=== PATIENT | female | born 1950 | race Caucasian/White ===

== ENCOUNTER 2019-04-18 16:54 | Inpatient (IN) | payer MEDICARE, MEDICAID ==
[~2019-04-18] VITALS: Ht 172.7 cm; Wt 88.5 kg
--- NOTE | 2019-04-18 19:30 | NUR ---
Admitted a 69 y/o female from [facility]. On 5150 hold as DTS. Patient admitting Dx. Depression. Medical dx. chronic pain at right knee, fibromyalgia, redness breast fold fungal. Upon face to face evaluation, patient appeared alert and oriented x 3, calm, cooperative, hyperverbal, needy, paranoid, suspicious, denies SI/HI/AH/VH. Body check done. Picture done. Explained the paper works and patient signed the consents. Informed of visiting hours and unit policies. Belongings and contraband checked. Q15 min checks initiated. Care plan started. Vital signs checked and recorded. Patient's rights discussed, guide to prescription meds handbook provided. Patient advised of the hold. Notified Ricardo Helm to reconcile meds and order of wound consult, notified Arelis (daughter) of the patients admission, notified Dr. Baron of the admission. Will monitor patient for mood, safety and behavior. Will endorse to the day shift.
[2019-04-18] MEDS ORDERED: MAG HYDROX/AL HYDROX/SIMETH 30 ML UDC PO PRN (20:00)
[2019-04-18] MEDS ORDERED: MAGNESIUM HYDROXIDE 30 ML UDC PO PRN (20:00)
[2019-04-18] MEDS ORDERED: BLOOD SUGAR DIAGNOSTIC 1 EACH STRIP IN ONE (20:30)
[2019-04-18] MEDS ORDERED: TRAM50TA2 PO (20:44)
[2019-04-18] MEDS ORDERED: ESTR42.5 (20:44)
[2019-04-18] MEDS ORDERED: MEMA5TAB15 PO (20:44)
[2019-04-18] MEDS ORDERED: DIVA-76 PO (20:44)
[2019-04-18] MEDS ORDERED: GABA-534 (20:44)
[2019-04-18] MEDS ORDERED: VALS40TA12 (20:44)
[2019-04-18] MEDS ORDERED: LEVO25TA9 PO (20:44)
[2019-04-18] MEDS ORDERED: HYDR-3980 PO (20:44)
[2019-04-18] MEDS ORDERED: NEBI5TAB8 (20:44)
[2019-04-18] MEDS ORDERED: ROSU5TAB13 (20:44)
[2019-04-18] MEDS ORDERED: CITA40TA11 PO (20:44)
[2019-04-18] MEDS ORDERED: PANT40TA4 PO (20:44)
[2019-04-18] MEDS ORDERED: ALPR0.5T8 PO (20:44)
[2019-04-18] MEDS ORDERED: CLON1TAB12 PO (20:44)
[2019-04-18] MEDS ORDERED: DONE5TAB34 PO (20:44)
[2019-04-18 20:50] VITALS: BP 148/97
[2019-04-18 20:52] VITALS: BP 123/75
[2019-04-18] MEDS ORDERED: TRAMADOL HCL 50 MG TABLET PO PRN (22:00)
[2019-04-18] MEDS: CYCLOBENZAPRINE 10 MG TABLET PO PRN (22:13)
[2019-04-18] MEDS: LORAZEPAM 1 MG TABLET PO PRN (22:14)
[2019-04-18] MEDS: DONEPEZIL 5 MG TABLET PO SCH (22:14)
[2019-04-18] MEDS: SIMVASTATIN 10 MG TABLET PO SCH (22:18)
[2019-04-18] MEDS: ACETAMINOPHEN 325 MG TABLET PO PRN (23:14)
--- NOTE | 2019-04-19 | NUR ---
GPS RN NOTE: PATIENT C/O 05/09 CRAMPING PAIN ON BOTH LEGS, PATIENT WAS SHAKING, UNEASY, REQUESTING FOR NORCO , BECAUSE PER PATIENT SHE IS HAVING A WITHDRAWAL. HOT COMPRESS GIVEN, FLEXERIL GIVEN ORDERED, ATIVAN 1MG PO GIVEN FOR ANXIETY, TYLENOL GIVEN REQUESTED. PER PATIENT ITS NOT EFFECTIVE. NOTIFIED RENAL SOCIAL WORKERAlexander TALAMANTES WITH ORDER OF NORCO GIVEN NOTED AND CARRIED OUT. WILL CONTINUE TO MONITOR Q15 MINS FOR SAFETY Addendum: 04/19/19 at 0535 by OMID SHORT II, RN OFFERED TRAMADOL ORDERED AND PATIENT REFUSED, KENDAL KHAN
[2019-04-19 00:05] VITALS: BP 148/97
[2019-04-19] MEDS: HYDROCODONE/APAP 5/325MG 1 EACH TABLET PO PRN ×5 (00:15→20:08)
[2019-04-19] MEDS: ZOLPIDEM TARTRATE 5 MG TABLET PO PRN ×2 (01:17→21:31)
--- NOTE | 2019-04-19 01:17 | NUR ---
GPS RN NOTE, PATIENT HAS A COMPLAINT OF NOT BEING ABLE TO SLEEP AND IS REQUESTING AMBIEN AT THIS TIME. PATIENT VITAL SIGNS ARE STABLE. GAVE AMBIEN 5 MG PO HS PRN ORDERED. WILL REASSESS FOR INSOMNIA AND I WILL CONTINUE TO MONITOR THIS PATIENT.
[2019-04-19] MEDS: LORAZEPAM 1 MG TABLET PO PRN ×3 (04:16→21:31)
[2019-04-19] MEDS: ACETAMINOPHEN 325 MG TABLET PO PRN (05:31)
[2019-04-19] MEDS: LEVOTHYROXINE SODIUM 25 MCG TABLET PO SCH ×2 (06:52→08:12)
[2019-04-19 07:36] LABS: BASOPHILS # (AUTO) 0.1 /CMM (0.0-0.2); BASOPHILS % (AUTO) 0.6 % (0.0-2.0); EOSINOPHILS % (AUTO) 0.3 % (0.0-6.0); HEMATOCRIT 43 % (33-45); HEMOGLOBIN 14.8 g/dL (11.5-14.8); LYMPHOCYTES # (AUTO) 1.8 /CMM (0.8-4.8); LYMPHOCYTES % (AUTO) 17.7 % (20.0-44.0); MEAN CORPUSCULAR HGB CONC 34 g/dl (31.0-36.0); MEAN CORPUSCULAR VOLUME 89 fL (82-100); MONOCYTES # (AUTO) 0.8 /CMM (0.1-1.30); MONOCYTES % (AUTO) 8.4 % (2.0-12.0); NEUTROPHILS # (AUTO) 7.4 /CMM (1.8-8.9); PLATELET COUNT (AUTO) 252 /CMM (150-450); RED BLOOD CELL COUNT(AUTO) 4.82 MIL/uL (4.0-5.2); WHITE BLOOD COUNT (AUTO) 10.1 K/uL (4.3-11.0)
[2019-04-19 07:56] LABS: CALCIUM, SERUM 9.3 mg/dL (8.5-10.1); CREATININE 0.7 mg/dL (0.6-1.3); POTASSIUM 3.7 mmol/L (3.5-5.1)
[2019-04-19 08:00] VITALS: BP 161/69
[2019-04-19] MEDS: PANTOPRAZOLE 40 MG TABLET.DR PO SCH (08:12)
[2019-04-19] MEDS: MEMANTINE HCL 5 MG TABLET PO SCH (08:16)
--- NOTE | 2019-04-19 08:18 | NUR ---
RN NOTE: PATIENT COMPLAINING OF ANXIETY; PRN ATIVAN GIVEN
[2019-04-19] MEDS: NICOTINE PATCH (21MG) 21 MG PATCH.TD24 TD SCH (08:20)
[2019-04-19] MEDS ORDERED: GABAPENTIN 300 MG CAPSULE PO SCH (09:00)
[2019-04-19] MEDS ORDERED: LEVOTHYROXINE SODIUM 25 MCG TABLET PO SCH (09:00)
[2019-04-19] MEDS: hydrALAZINE HCL 25 MG TABLET PO PRN ×2 (10:28→18:20)
[2019-04-19] MEDS: CYCLOBENZAPRINE 10 MG TABLET PO PRN (10:28)
--- NOTE | 2019-04-19 10:30 | NUR ---
RN NOTE: PATIENT IS COMPLAINING OF EXTREME PAIN. ALL OF HER PAIN MEDS WERE EXHAUSTED. THEN, PATIENT STATED SHES NOT IN PAIN AND SHE NEEDS TO GO SOMEWHERE FOR DETOX THERAPY. INFORMED MD SAM OF PATIENT'S COMPLAINTS. PATIENT IS VERY ANXIOUS AND KEEPS STATING SHE WANTS TO GO TO A DETOX CENTER. INFORMED DR. SÁNCHEZ THAT PATIENT WANTS TO SPEAK TO HIM AND HE STATED HE WILL BE SEEING HER TODAY. PRN HYDRALAZINE GIVEN TO PATIENT FOR BP 161/69.
--- NOTE | 2019-04-19 10:41 | NUR ---
RN NOTE: CONTACTED DR. VARGAS IN REGARDS TO PATIENT STATING SHE'S HAVING WITHDRAWAL SYMPTOMS. PATIENT PRESENTS WITH RESTLESS, ANXIOUS BEHAVIOR, SWEATING AND CRYING IN HALLS. RETRIEVED ORDERS TO CHANGE NORCO TO Q4 HOURS PRN AND TO GET A PAIN CONSULT.
--- NOTE | 2019-04-19 11:10 | NUR ---
WOUND CARE CONSULT PATIENT SEEN AND SKIN ASSESSMENT DONE. PATIENT PRESENTS WITH REDNESS WITH ODOR TO THE BILATERAL BREASTFOLDS, BILATERAL GROIN FOLDS, OUTER LABIAL/VAGINAL REGIONS POA. RECOMMEND LOTRISONE CREAM BID X 10 DAYS. PATIENT IS AMBULATORY AND CONTINENT. WILL SEE PRN. ALL DISCUSSED WITH NURSING AT THE BEDSIDE.
--- NOTE | 2019-04-19 11:23 | NUR ---
RN NOTE: PATIENT COMPLAINING OF 8/10 PAIN. PRN NORCO GIVEN.
[2019-04-19 13:01] LABS: MAGNESIUM 1.7 mg/dL (1.8-2.4); PHOSPHORUS 3.7 mg/dL (2.5-4.9); THYROID STIMULATING HORMONE 4.09 uIU/mL (0.358-3.74)
[2019-04-19] MEDS: DIVALPROEX SODIUM 250 MG TABLET.DR PO SCH ×2 (14:24→21:31)
[2019-04-19] MEDS: CITALOPRAM HYDROBROMIDE 20 MG TABLET PO SCH (14:24)
--- NOTE | 2019-04-19 15:19 | NUR ---
KRISTEN called the pts friend, Leandro ([phone]), and informed him about the pts initial treatment plan and discharge plan and then inquired about whether or not he has the pts daughters phone number. He stated that he did not have it and stated that he would visit the pt.
--- NOTE | 2019-04-19 15:21 | NUR ---
Initial Discharge Plan: Pt currently resides at her home located at [address] [place] [address]; ([phone]). Per pt, she would like to return home and then go to a treatment center. KRISTEN will work with the pt and the MD regarding appropriate discharge planning. SW will form a safe and proper discharge.
[2019-04-19 16:05] VITALS: BP 163/85
--- NOTE | 2019-04-19 16:05 | NUR ---
RN NOTE: PATIENT COMPLAINING OF 8/10 PAIN. PRN NORCO GIVEN.
[2019-04-19] MEDS: CLOTRIMAZOLE/BETAMETASONE DIPROPIONATE 15 GM TUBE TP SCH (17:20)
--- NOTE | 2019-04-19 17:20 | NUR ---
RN NOTE: PAIN MANAGEMENT CONSULT ORDER INPUT. CONTACTED THE OFFICES OF [facility] AND LEFT A VOICEMAIL FOR CONSULTATION. INFORMED PATIENT ABOUT WAYS TO MANAGE PAIN BUT PATIENT ONLY WANTS PAIN MEDICATION. THROUGH OBSERVATION, PATIENT IS VERY ANXIOUS AND AGITATED WHEN SHE REQUESTS PAIN MEDICATION. A MOMENT AFTER MEDICATION WAS GIVEN, PATIENT WAS ROAMING DOWN HALLWAYS WITH A SMILE ON HER FACE, NO FACIAL GRIMACE OR AGITATION AND NO NON-VERBAL SIGNS OF DISTRESS NOTED. I INFORMED PATIENT THAT I HAD CHANGED THE FREQUENCY PER DR ORDER FOR NORCO FROM Q6HRS TO Q4HRS AND SHE WAS STILL UNHAPPY. I ALSO INFORMED HER THAT I HAD MADE A PAIN MANAGEMENT ORDER FOR CONSULTATION.
--- NOTE | 2019-04-19 18:20 | NUR ---
RN NOTE: BP 163/85 PRN HYDRALAZINE GIVEN.
[2019-04-19 20:29] VITALS: BP 148/96
[2019-04-19] MEDS: DONEPEZIL 5 MG TABLET PO SCH (21:31)
[2019-04-19] MEDS: SIMVASTATIN 10 MG TABLET PO SCH (21:32)
[2019-04-20] MEDS: HYDROCODONE/APAP 5/325MG 1 EACH TABLET PO PRN ×5 (00:06→22:51)
[2019-04-20 08:00] VITALS: BP 133/76
[2019-04-20] MEDS: PANTOPRAZOLE 40 MG TABLET.DR PO SCH (08:13)
[2019-04-20] MEDS: MEMANTINE HCL 5 MG TABLET PO SCH (08:13)
[2019-04-20] MEDS: LEVOTHYROXINE SODIUM 25 MCG TABLET PO SCH (08:13)
[2019-04-20] MEDS: DIVALPROEX SODIUM 250 MG TABLET.DR PO SCH ×2 (08:13→21:09)
[2019-04-20] MEDS: CITALOPRAM HYDROBROMIDE 20 MG TABLET PO SCH (08:13)
--- NOTE | 2019-04-20 08:16 | NUR ---
RN NOTE: PATIENT COMPLAINING ON CONSTIPATION; PRN MOM GIVEN. PATIENT ALSO COMPLAINING OF 8/10 PAIN, PRN NORCO GIVEN.
[2019-04-20] MEDS: NICOTINE PATCH (21MG) 21 MG PATCH.TD24 TD SCH (08:17)
[2019-04-20] MEDS: CLOTRIMAZOLE/BETAMETASONE DIPROPIONATE 15 GM TUBE TP SCH ×2 (09:02→16:54)
--- NOTE | 2019-04-20 11:07 | NUR ---
KRISTEN faxed a referral to [facility] with attention to David to the fax number: [phone].
--- NOTE | 2019-04-20 12:21 | NUR ---
RN NOTE: PATIENT COMPLAINING OF 7/10 PAIN. NORCO PRN GIVEN.
--- NOTE | 2019-04-20 12:22 | NUR ---
RN NOTE: PATIENT SEEMS TO BE HANDLING HER ANXIETY AND BEHAVIOR A LOT BETTER TODAY. PATIENT STILL COMPLAINS OF PAIN BUT IS ABLE TO MANAGE IT BETTER.
--- NOTE | 2019-04-20 12:41 | NUR ---
David ([phone]) from [facility] called the SW and stated that the pt was not accepted due to her insurance and recommended [facility].
--- NOTE | 2019-04-20 12:43 | NUR ---
SW spoke to the pt regarding sending a referral to [facility] and she stated that she did not like that facility and has been there before. She stated that it felt like a longterm full of prisoner. Pt stated that there is a program through [facility] that does detox and rehab in [place] and that she is going to connect herself.
--- NOTE | 2019-04-20 15:20 | NUR ---
KRISTEN met with the pt and the pts psychologist, Dr. Kraft, and discussed a program that would be beneficial for the pt to attend once she has completed her detox. KRISTEN stated that she will refer the pt to [facility].
[2019-04-20 15:46] LABS: APPEARANCE,URINE CLEAR (CLEAR); BILIRUBIN,URINE NEGATIVE (NEGATIVE); BLOOD, URINE NEGATIVE Ery/uL (NEGATIVE); COLOR,URINE YELLOW (YELLOW); KETONES,URINE NEGATIVE (NEGATIVE); LEUKOCYTE ESTERASE ,URINE NEGATIVE (NEGATIVE); NITRITE, URINE NEGATIVE (NEGATIVE); PH,URINE 6.5 (5.0-8.0); PROTEIN,URINE NEGATIVE (NEGATIVE); UGLUCOSE NEGATIVE (NEGATIVE); UROBILINOGEN,URINE 0.2 EU/dL (0.2)
[2019-04-20 16:00] VITALS: BP 154/77
--- NOTE | 2019-04-20 16:00 | NUR ---
Group Note: Pt was encouraged to participate in group therapy but the pt refused because she stated that she was in too much pain and needed some medicine. SW then discussed the pts need for pain medicine and asked her to understand when it is necessary and when it is not. Pt stated that she does take it when her pain is not that high and she stated that she will try.
[2019-04-20] MEDS: GABAPENTIN 300 MG CAPSULE PO SCH (16:53)
--- NOTE | 2019-04-20 18:38 | NUR ---
RN NOTE: PATIENT DIDN'T WANT HER NORCO ANYMORE AND STATED SHE WANTED TO WAIT A LITTLE BIT LONGER. NORCO RETURNED.
[2019-04-20 20:00] VITALS: BP 153/76
[2019-04-20] MEDS: DONEPEZIL 5 MG TABLET PO SCH (21:09)
[2019-04-20] MEDS: SIMVASTATIN 10 MG TABLET PO SCH (21:09)
[2019-04-20] MEDS: LORAZEPAM 1 MG TABLET PO PRN (21:47)
[2019-04-21] MEDS: ZOLPIDEM TARTRATE 5 MG TABLET PO PRN (00:10)
[2019-04-21] MEDS: HYDROCODONE/APAP 5/325MG 1 EACH TABLET PO PRN ×3 (04:46→14:52)
[2019-04-21 08:00] VITALS: BP 125/79
[2019-04-21] MEDS: GABAPENTIN 300 MG CAPSULE PO SCH ×2 (08:09→13:06)
[2019-04-21] MEDS: DIVALPROEX SODIUM 250 MG TABLET.DR PO SCH (08:09)
[2019-04-21] MEDS: PANTOPRAZOLE 40 MG TABLET.DR PO SCH (08:09)
[2019-04-21] MEDS: CITALOPRAM HYDROBROMIDE 20 MG TABLET PO SCH (08:09)
[2019-04-21] MEDS: MEMANTINE HCL 5 MG TABLET PO SCH (08:09)
[2019-04-21] MEDS ORDERED: CLONIDINE HCL 0.3 MG/24H PTWK 1 EA PATCH TD SCH (09:00)
[2019-04-21] MEDS: NICOTINE PATCH (21MG) 21 MG PATCH.TD24 TD SCH (09:00)
--- NOTE | 2019-04-21 09:08 | NUR ---
KRISTEN faxed a referral to [facility] with attention to Ciara to the fax number: [phone].
[2019-04-21 09:27] VITALS: BP 125/79
--- NOTE | 2019-04-21 09:39 | NUR ---
RN NOTE: PATIENT COMPLAINING OF PAIN 03/08; CHAI AMAROCO GIVEN. Addendum: 04/21/19 at 1216 by FAWAD GUERRERO RN A FEW MOMENTS LATER, I HAD GONE IN THE [employer]ICELL TO RETRIEVE A MAALOX MAX BECAUSE PATIENT WAS COMPLAINING OF HEARTBURN. WHEN I SIGNED IN TO THE [employer]ICELL, I NOTICED A MESSAGE STATING THAT I HAD A NORCO TO WASTE AND TO DO A COUNT WITH THE CNBENY. WHEN THE SEATER ASSEMBLER CAME TO THE UNIT, WE LOOKED OVER THE [employer] ALERT TOGETHER WITH THE CN. THE MESSAGE STATED THAT THE QUANTITY REMOVED WAS 3 AND 2 HAD TO BE WASTED WHEN, IN FACT, I HAD ONLY PULLED OUT 1 MEDICATION. WE CHECKED FOR DISCREPANCIES AND THERE WERE NONE. THE WASTE WAS DOCUMENTED AN ERROR WITH THE CN A CO-WITNESS/CO-SIGNER. AFTER THE WASTE WAS DOCUMENTED WITH THE NOTE IN [employer], WE EXITED AND AND I RE-SIGNED IN TO VERIFY THERE ARE NO MORE WASTES IN WHICH THERE WEREN'T. DISCREPANCIES WERE RE-CHECKED (04/21/2019 @ 10:30:27) AND IT STATED THAT THERE WERE "NO MORE DISCREPANCIES TO RESOLVE THAT YOU HAVE ACCESS TO".
--- NOTE | 2019-04-21 09:39 | NUR ---
RN NOTE: CLONIDINE PATCH APPLIED TO LEFT LOWER BACK.
--- NOTE | 2019-04-21 10:50 | NUR ---
KRISTEN called the pts daughter, Arelis ([phone]), and informed her that the pt is going to leave AMA and that she will need to be picked up from the facility. She stated that she will pick up attendant the pt around 3pm.
[2019-04-21] MEDS: CLOTRIMAZOLE/BETAMETASONE DIPROPIONATE 15 GM TUBE TP SCH (11:04)
--- NOTE | 2019-04-21 11:50 | NUR ---
RN NOTE: PATIENT REPORTED SHE HAD FALLEN AT 0830. SHE STATED THAT AFTER HER SHOWER, SHE OPENED THE DOOR AND STEPPED IN THE HALLWAY WHERE SHE SLIPPED ON TO THE FLOOR ON HER BUM. PATIENT DENIES HITTING HER HEAD. PRIOR TO INCIDENT. PATIENT INFORMED WEEKEND ANCHOR THAT SHE WANTED TO SHOWER ON HER OWN AND DID NOT NEED ANY ASSISTANCE. REPORTS PAIN 6/10 AT RIGHT BUTTOCK. NO INJURIES NOTED UPON BODY CHECK. NEURO CHECK COMPLETE. VSS. ALERT AND ORIENTED X3. PERRLA. CHARGE NURSE NOTIFIED. CANE PACKER NOTIFIED. CENTER DIRECTOR NOTIFIED. WILL CONTACT RESPONSIBLE REPUBLICAN FOR REVIEW OF FOOTAGE AND FURTHER INVESTIGATION. CONTACTED MD SAM AND RECEIVED ORDERS FOR STAT XR PELVIC. PATIENT AWARE OF PLAN AND IS SELF RESPONSIBLE. Addendum: 04/21/19 at 1152 by FAWAD GUERRERO RN RADIOLOGY ARRIVED TO UNIT AND COMPLETED X-RAY. AWAITING RESULTS.
--- NOTE | 2019-04-21 13:43 | NUR ---
DR. VARGAS NOTIFIED ABOUT THE X-RAY RESULT AND NOTIFIED THAT PT. IS FOR DISCHARGE AMA.
--- NOTE | 2019-04-21 14:37 | NUR ---
Discharge Note: Pt was discharged back home against medical advice (AMA) to [address] [place] [address]; ([phone]). Pt was picked up by her daughter, Arelis ([phone]), around 3pm. Upon discharge, the pt appeared to be in a euthymic mood and presented with a calm affect. Pt denied both suicidal and homicidal ideation as well as auditory and visual hallucinations. Pt was provided with three substance abuse referrals that are listed below. Pt will continue to be under the care of her psychiatrist, Dr. Merry Pack, located at [address] [place] [address]; and her cafeteria cashier, Dr. Pieter Pillai, located at [address] [place] [address]; . Substance Abuse Referrals: [facility] [address] [facility] [place] [address] Tel. �[facility] �Primary Care �[facility] [address] [place] [facility] �Mental Health Treatment �Tele-dermatology �HIV Services �[facility] [place] [facility] [address] [place] [address] [facility] [address] [place] [address]
--- NOTE | 2019-04-21 14:52 | NUR ---
RN NOTE: PATIENT COMPLAINING OF 7/10 PAIN, PRN NORCO GIVEN.
--- NOTE | 2019-04-21 15:38 | NUR ---
IMPREGNATOR OPERATOR NOTE: PATIENT IS A 69 YEAR OLD FEMALE DISCHARGED BACK HOME AMA TO [address] [facility] [address] . PATIENT IS IN STABLE CONDITION. VSS. NO ACUTE DISTRESS NOTED. COMPLIANT WITH MEDICATION MANAGEMENT. COOPERATIVE WITH PLAN OF CARE. MEDICAL TREATMENT PLANS DEFERRED FOR CONTINUAL MONITORING. DENIES SI/HI VAH AT THE TIME OF DISCHARGE. PATIENT DID NOT WANT PHOTOS TO BE TAKEN OF WOUNDS BUT WAS ABLE TO SEE HER WOUNDS. PATIENT STILL HAS REDNESS ON BREAST FOLDS AND ABDOMINAL FOLDS BEING TREATED WITH SOAP, WATER, DRIED AND APPLICATION OF CLOMITRAZOLE. EDUCATED PATIENT ABOUT AFTERCARE WITH COPY PROVIDED. RETURNED PERSONAL BELONGINGS TO PATIENT. MD SAM AND DR SÁNCHEZ AWARE OF AMA. AMA PAPERWORK SIGNED AND IN CHART. DISCHARGE PAPERWORK SIGNED. FOR FOLLOW UP WITH PSYCHIATRIST DR KAREN HERMAN LOCATED AT [address] [facility] [id number] AND [employer] [facility] LOCATED AT [address] [facility] [address] AND [employer] AT WITHIN 1 WEEK. PATIENT LEFT THE [facility] WITH HER DAUGHTER BRADEN AT [address] .
[2019-04-21] MEDS ORDERED: MAGNESIUM OXIDE 400 MG TABLET PO SCH (22:00)
== END 2019-04-21 15:35 | disposition left against medical advice (07) | DRG 885 ==
LOC: GPS 19:08
PROVIDERS: ADMIT Psychiatry & Neurology Psychiatry; ATTEND Nurse Practitioner Acute Care
DX: F31.30 Bipolar disorder, current episode depressed, mild or moderate severity, unspecified (principal); F11.23 Opioid dependence with withdrawal; G92 Toxic encephalopathy; R45.851 Suicidal ideations; F17.210 Nicotine dependence, cigarettes, uncomplicated; I10 Essential (primary) hypertension; M79.7 Fibromyalgia; E03.9 Hypothyroidism, unspecified; E83.42 Hypomagnesemia; G89.4 Chronic pain syndrome; Z96.651 Presence of right artificial knee joint; Z91.14 Patient's other noncompliance with medication regimen; Z88.2 Allergy status to sulfonamides; M25.569 Pain in unspecified knee
CPT/HCPCS: 36415; 72190-TC; 80048-TC; 80061-TC; 81000-TC; 83735-TC; 84100-TC; 84439-TC; 84443-TC; 85025-TC; 87081-TC; 97116-TC; 97530-TC